=== PATIENT | female | born 2000 | race Caucasian/White ===

== ENCOUNTER 2018-11-21 20:50 | Emergency (ER) | payer MEDICAID ==
[~2018-11-21] VITALS: Ht 165.1 cm; Wt 79.2 kg
--- NOTE | 2018-11-21 21:18 | NUR ---
Discussed pt's c/o N/V with Dr Mcneal;new orders received.
[2018-11-21] MEDS ORDERED: ondansetron 4mg rapidly disintigrating tab PO ONE (21:20)
[2018-11-21 21:31] LABS: BASOPHILS % (AUTO) 0.7 % (0-1); EOSINOPHILS # (AUTO) 0.3 X10'3 (0-0.9); EOSINOPHILS % (AUTO) 4.1 % (0-6); HEMATOCRIT 38.7 % (35.0-45.0); LYMPHOCYTES # (AUTO) 2.5 X10'3 (1.1-4.8); LYMPHOCYTES % (AUTO) 36.1 % (21-51); MEAN CORPUSCULAR HEMOGLOBIN 28.7 PG (27.0-31.0); MEAN CORPUSCULAR HGB CONC 33.6 g/dL (33.0-36.5); MEAN CORPUSCULAR VOLUME 85.3 FL (78-98); MEAN PLATELET VOLUME 7.4 FL (7.4-10.4); MONOCYTES # (AUTO) 0.7 X10'3 (0-0.9); MONOCYTES % (AUTO) 9.9 % (2-12); NEUTROPHILS # (AUTO) 3.4 X10'3 (1.8-7.7); NEUTROPHILS % (AUTO) 49.2 % (42-75); PLATELET COUNT 285 X10'3 (140-440); RED BLOOD COUNT 4.53 X10'6 (4.20-5.60); RED CELL DISTRIBUTION WIDTH 14.1 % (11.5-14.5); WHITE BLOOD COUNT 6.9 X10'3 (4.5-11.0)
[2018-11-21 21:33] LABS: UA COLLECTION TYPE CLN CATCH MIDSTREAM
[2018-11-21 21:34] LABS: CLARITY,URINE SLIGHTLY CLOUDY (Clear); COLOR,URINE YELLOW (Yellow); GLUCOSE, URINE NEGATIVE (Neg); KETONES,URINE NEGATIVE (Neg); LEUKOCYTE ESTERASE ,URINE TRACE (Neg); NITRITES, URINE NEGATIVE (Neg); OCCULT BLOOD,URINE LARGE (Neg); PH,URINE 6.5 (4.8-8.0); PROTEIN,URINE TRACE mg/dl (Neg)
[2018-11-21 21:39] LABS: URINE HCG NEGATIVE (NEG)
[2018-11-21 21:42] LABS: BACTERIA,URINE 1+ /HPF (Neg); MUCUS STRANDS NONE SEEN /LPF (Neg); SQUAMOUS EPITHELIAL CELL,UR MODERATE /LPF (FEW)
[2018-11-21 21:43] LABS: ALANINE AMINOTRANSFERASE 20 U/L (12-78); ALBUMIN 3.8 G/DL (3.4-5.0); ALKALINE PHOSPHATASE 82 IU/L (20-180); ANION GAP 9 (8-16); BILIRUBIN,TOTAL 0.5 MG/DL (0.1-1.0); BLOOD UREA NITROGEN 13 MG/DL (7-18); BUN/CREATININE RATIO 18.3 (6.6-38.0); CALCIUM 8.5 MG/DL (8.5-10.1); CHLORIDE 105 MMOL/L (99-107); CREATININE 0.71 MG/DL (0.40-0.90); GLUCOSE 109 MG/DL (70-104); LIPASE 102 U/L (73-393); POTASSIUM 3.8 MMOL/L (3.5-5.1); SODIUM 139 MMOL/L (135-145); TOTAL CARBON DIOXIDE 25.4 MMOL/L (24-32); TOTAL PROTEIN 7.7 G/DL (6.4-8.2); eGFR > 90 ML/MIN
[2018-11-21 21:50] LABS: ASPARTATE AMINO TRANSFERASE 12 U/L (10-37)
[2018-11-21] MEDS ORDERED: nitrofuran/nitrofuran macrocrysal 100 MG capsule PO ONE (22:55)
[2018-11-21] MEDS ORDERED: NITR100C6 PO (23:56)
[2018-11-22 00:15] VITALS: BP 111/76
== END 2018-11-22 00:16 | disposition home or self-care (01) ==
LOC: ER 20:51
DX: N39.0 Urinary tract infection, site not specified (principal); R10.11 Right upper quadrant pain; R10.12 Left upper quadrant pain; R11.2 Nausea with vomiting, unspecified; Z79.899 Other long term (current) drug therapy
CPT/HCPCS: 36415; 80053; 81001; 81025; 83690; 85025; 87088; 99283

== ENCOUNTER 2018-11-28 21:22 | Emergency (ER) | payer MEDICAID ==
[~2018-11-28] VITALS: Ht 165.1 cm; Wt 77.3 kg
[~2018-11-28 21:22] MED LIST: NITR100C6 PO
[2018-11-28 22:05] LABS: BASOPHILS # (AUTO) 0.1 X10'3 (0-0.2); BASOPHILS % (AUTO) 0.9 % (0-1); EOSINOPHILS # (AUTO) 0.2 X10'3 (0-0.9); EOSINOPHILS % (AUTO) 2.4 % (0-6); HEMATOCRIT 40.7 % (35.0-45.0); LYMPHOCYTES # (AUTO) 2.9 X10'3 (1.1-4.8); LYMPHOCYTES % (AUTO) 33.8 % (21-51); MEAN CORPUSCULAR HGB CONC 34.4 g/dL (33.0-36.5); MEAN CORPUSCULAR VOLUME 84.5 FL (78-98); MEAN PLATELET VOLUME 7.3 FL (7.4-10.4); MONOCYTES # (AUTO) 0.6 X10'3 (0-0.9); MONOCYTES % (AUTO) 7.1 % (2-12); NEUTROPHILS # (AUTO) 4.7 X10'3 (1.8-7.7); NEUTROPHILS % (AUTO) 55.8 % (42-75); PLATELET COUNT 338 X10'3 (140-440); RED BLOOD COUNT 4.81 X10'6 (4.20-5.60); WHITE BLOOD COUNT 8.4 X10'3 (4.5-11.0)
[2018-11-28 22:12] LABS: ALANINE AMINOTRANSFERASE 21 U/L (12-78); ALBUMIN 3.7 G/DL (3.4-5.0); ALBUMIN/GLOBULIN RATIO 0.9 (1.1-1.5); ALKALINE PHOSPHATASE 79 IU/L (20-180); AMYLASE 51 U/L (25-115); ANION GAP 7 (8-16); ASPARTATE AMINO TRANSFERASE 19 U/L (10-37); BILIRUBIN,TOTAL 0.3 MG/DL (0.1-1.0); BLOOD UREA NITROGEN 13 MG/DL (7-18); BUN/CREATININE RATIO 19.1 (6.6-38.0); CALCIUM 8.6 MG/DL (8.5-10.1); CHLORIDE 104 MMOL/L (99-107); CREATININE 0.68 MG/DL (0.40-0.90); GLUCOSE 109 MG/DL (70-104); LIPASE 101 U/L (73-393); POTASSIUM 3.8 MMOL/L (3.5-5.1); SODIUM 136 MMOL/L (135-145); TOTAL CARBON DIOXIDE 24.7 MMOL/L (24-32); TOTAL PROTEIN 7.9 G/DL (6.4-8.2); eGFR > 90 ML/MIN
[2018-11-29 00:09] VITALS: BP 105/70
== END 2018-11-29 00:11 | disposition home or self-care (01) ==
LOC: ER 21:24
DX: R07.89 Other chest pain (principal); R10.13 Epigastric pain; R05 Cough; F17.200 Nicotine dependence, unspecified, uncomplicated; Z79.899 Other long term (current) drug therapy
CPT/HCPCS: 36415; 71046; 80053; 82150; 83690; 85025; 93005; 99284

== ENCOUNTER 2018-12-31 16:03 | Emergency (ER) | payer MEDICAID ==
[~2018-12-31] VITALS: Ht 165.1 cm; Wt 81.0 kg
[2018-12-31 16:04] VITALS: BP 122/83
[2018-12-31] MEDS ORDERED: LIDOcaine 1% w/epiNEPHrine 1:200,000 30ml vial IM ONE (16:10)
--- NOTE | 2018-12-31 16:20 | NUR ---
TOM contacted, Case # [id number]
== END 2018-12-31 16:47 | disposition home or self-care (01) ==
LOC: ER 16:03
DX: S61.021A Laceration with foreign body of right thumb without damage to nail, initial encounter (principal); W34.010A Accidental discharge of airgun, initial encounter; Y93.89 Activity, other specified; Y92.89 Other specified places as the place of occurrence of the external cause; Y99.9 Unspecified external cause status
CPT/HCPCS: 12041; 73130; 99284

== ENCOUNTER 2019-06-05 14:21 | Emergency (ER) | payer MEDICAID ==
[~2019-06-05] VITALS: Ht 165.1 cm; Wt 83.6 kg
[2019-06-05 14:55] VITALS: BP 111/69
--- NOTE | 2019-06-05 15:21 | NUR ---
RED THROAT SWAB COLLECTED BY DR ARAGON AND SENT BY RN TO LAB, ORDERS TO FOLLOW
== END 2019-06-05 15:35 | disposition home or self-care (01) ==
LOC: ER 14:21
DX: J02.9 Acute pharyngitis, unspecified (principal); F17.200 Nicotine dependence, unspecified, uncomplicated; Z79.899 Other long term (current) drug therapy
CPT/HCPCS: 87081; 87880; 99283

== ENCOUNTER 2019-07-13 19:33 | Emergency (ER) | payer MEDICAID ==
[~2019-07-13] VITALS: Ht 165.1 cm; Wt 80.0 kg
[2019-07-13 19:37] VITALS: BP 109/71
[2019-07-13] MEDS ORDERED: LIDOcaine Viscous 15ml cup MM ONE (20:10)
== END 2019-07-13 20:50 | disposition home or self-care (01) ==
LOC: ER 19:34
DX: R13.10 Dysphagia, unspecified (principal)
CPT/HCPCS: 99282

== ENCOUNTER 2019-08-06 16:17 | Emergency (ER) | payer MEDICAID ==
[~2019-08-06] VITALS: Ht 165.1 cm; Wt 76.0 kg
[2019-08-06] MEDS ORDERED: pseudoephedrine 30mg tablet PO ONE (17:40)
[2019-08-06] MEDS ORDERED: ondansetron/PF 4mg/2ml inj IV ONE (17:40)
[2019-08-06] MEDS ORDERED: benzonatate 100mg capsule PO ONE (17:40)
[2019-08-06] MEDS ORDERED: ibuprofen 200mg tablet PO ONE (17:40)
[2019-08-06] MEDS ORDERED: normal saline 1000ML IV soln IVB ONE (17:40)
--- NOTE | 2019-08-06 18:59 | NUR ---
Patient resting comfortably on gurney, reports meds are working and body aches resolving. She is still congested, but cough is better.
[2019-08-06 19:47] VITALS: BP 101/50
== END 2019-08-06 19:50 | disposition home or self-care (01) ==
LOC: ER 16:18
DX: J06.9 Acute upper respiratory infection, unspecified (principal); M79.18 Myalgia, other site; R11.10 Vomiting, unspecified; K21.9 Gastro-esophageal reflux disease without esophagitis; F17.200 Nicotine dependence, unspecified, uncomplicated
CPT/HCPCS: 87502; 87503; 96361; 96374; 99284; J2405; J7030

== ENCOUNTER 2020-11-14 01:14 | Emergency (ER) | payer MEDICAID ==
[~2020-11-14] VITALS: Ht 165.1 cm; Wt 81.8 kg
[2020-11-14] MEDS ORDERED: naproxen 500mg tablet PO ONE (04:50)
[2020-11-14] MEDS ORDERED: cyclobenzaprine 10mg tablet PO ONE (04:50)
[2020-11-14] MEDS ORDERED: CYCL-1 PO (05:38)
[2020-11-14] MEDS ORDERED: NAPR-56 PO (05:38)
[2020-11-14 06:57] VITALS: BP 93/56
== END 2020-11-14 07:00 | disposition home or self-care (01) ==
LOC: ER 01:14
DX: M54.2 Cervicalgia (principal); R51.9 Headache, unspecified; M25.551 Pain in right hip; K21.9 Gastro-esophageal reflux disease without esophagitis; D64.9 Anemia, unspecified; V87.7XXA Person injured in collision between other specified motor vehicles (traffic), initial encounter; Y93.89 Activity, other specified; Y92.89 Other specified places as the place of occurrence of the external cause; Y99.8 Other external cause status
CPT/HCPCS: 72040; 72125; 99285

== ENCOUNTER 2020-12-25 09:18 | Emergency (ER) | payer MEDICAID ==
[~2020-12-25] VITALS: Ht 165.1 cm; Wt 70.0 kg
[~2020-12-25 09:18] MED LIST changes: +CYCL-1 PO
[2020-12-25] MEDS ORDERED: ketorolac trometh. 30mg/ml inj. IM ONE (11:35)
[2020-12-25] MEDS ORDERED: acetaminophen 325mg tablet PO ONE (11:35)
[2020-12-25 11:38] VITALS: BP 96/64
== END 2020-12-25 12:30 | disposition home or self-care (01) ==
LOC: ER 09:18
DX: M54.2 Cervicalgia (principal); K21.9 Gastro-esophageal reflux disease without esophagitis; Z86.2 Personal history of diseases of the blood and blood-forming organs and certain disorders involving the immune mechanism; Z72.89 Other problems related to lifestyle; Z79.899 Other long term (current) drug therapy; V87.7XXD Person injured in collision between other specified motor vehicles (traffic), subsequent encounter
CPT/HCPCS: 96372; 99283; J1885

== ENCOUNTER 2021-02-25 22:58 | Emergency (ER) | payer MEDICAID ==
[~2021-02-25] VITALS: Ht 165.1 cm; Wt 72.7 kg
[2021-02-25] MEDS ORDERED: FLUT16SP2 BOTHNARES (23:12)
[2021-02-25] MEDS ORDERED: PRED10TA23 PO (23:12)
[2021-02-25] MEDS ORDERED: AMOX-422 PO (23:12)
[2021-02-25 23:15] VITALS: BP 109/67
== END 2021-02-25 23:17 | disposition home or self-care (01) ==
LOC: ER 22:59
DX: J32.8 Other chronic sinusitis (principal); B96.89 Other specified bacterial agents as the cause of diseases classified elsewhere; R09.81 Nasal congestion; R51.9 Headache, unspecified; K21.9 Gastro-esophageal reflux disease without esophagitis; Z86.2 Personal history of diseases of the blood and blood-forming organs and certain disorders involving the immune mechanism; Z72.89 Other problems related to lifestyle; Z79.2 Long term (current) use of antibiotics; Z79.899 Other long term (current) drug therapy
CPT/HCPCS: 99283

== ENCOUNTER 2022-07-24 21:25 | Emergency (ER) | payer MEDICAID ==
[~2022-07-24] VITALS: Ht 165.1 cm; Wt 56.0 kg
[~2022-07-24 21:25] MED LIST changes: +FLUT16SP2 BOTHNARES
[2022-07-24 21:35] VITALS: BP 104/69
[2022-07-24 22:03] LABS: BASOPHILS % (AUTO) 0.3 % (0-1); EOSINOPHILS # (AUTO) 0.2 X10'3 (0-0.9); EOSINOPHILS % (AUTO) 0.9 % (0-6); HEMATOCRIT 40.4 % (35.0-45.0); HEMOGLOBIN 13.3 g/dl (12.0-16.0); LYMPHOCYTES # (AUTO) 1.5 X10'3 (1.1-4.8); LYMPHOCYTES % (AUTO) 8.9 % (21-51); MEAN CORPUSCULAR HEMOGLOBIN 28.8 PG (27.0-31.0); MEAN CORPUSCULAR HGB CONC 32.9 g/dL (33.0-36.5); MEAN CORPUSCULAR VOLUME 87.5 FL (78-98); MEAN PLATELET VOLUME 7.3 FL (7.4-10.4); MONOCYTES % (AUTO) 5.8 % (2-12); NEUTROPHILS # (AUTO) 14.6 X10'3 (1.8-7.7); NEUTROPHILS % (AUTO) 84.1 % (42-75); PLATELET COUNT 299 X10'3 (140-440); RED BLOOD COUNT 4.62 X10'6 (4.20-5.60); WHITE BLOOD COUNT 17.3 X10'3 (4.5-11.0)
[2022-07-24 22:14] LABS: ALANINE AMINOTRANSFERASE 13 U/L (12-78); ALKALINE PHOSPHATASE 53 IU/L (46-116); ANION GAP 9 (8-16); ASPARTATE AMINO TRANSFERASE 13 U/L (10-37); BILIRUBIN,TOTAL 1.5 MG/DL (0.1-1.0); BLOOD UREA NITROGEN 8 MG/DL (7-18); BUN/CREATININE RATIO 9.4 (6.6-38.0); CALCIUM 9.1 MG/DL (8.5-10.1); CHLORIDE 101 MMOL/L (99-107); CREATININE 0.85 MG/DL (0.40-0.90); GLUCOSE 99 MG/DL (70-104); LIPASE < 50 U/L (73-393); POTASSIUM 3.5 MMOL/L (3.5-5.1); SODIUM 136 MMOL/L (135-145); TOTAL CARBON DIOXIDE 25.7 MMOL/L (24-32); eGFR 82 ML/MIN
[2022-07-24] MEDS ORDERED: ibuprofen tablet 400 MG TABLET PO ONE (23:40)
[2022-07-24] MEDS ORDERED: acetaminophen 325mg tablet PO ONE (23:40)
[2022-07-24] MEDS ORDERED: ondansetron 4mg rapidly disintigrating tab PO ONE (23:40)
[2022-07-25 00:58] LABS: URINE HCG NEGATIVE (NEG)
[2022-07-25] MEDS ORDERED: AMOX500C2 PO (01:01)
[2022-07-25 01:04] LABS: CLARITY,URINE CLEAR (Clear); GLUCOSE, URINE NEGATIVE (Neg); KETONES,URINE >=80 mg/dl (Neg); LEUKOCYTE ESTERASE ,URINE NEGATIVE (Neg); NITRITES, URINE NEGATIVE (Neg); OCCULT BLOOD,URINE MODERATE (Neg); PH,URINE 5.5 (4.8-8.0); PROTEIN,URINE TRACE mg/dl (Neg); UROBILINOGEN,URINE 0.2 E.U/dL (0.2-1.0)
[2022-07-25 01:13] LABS: COLOR,URINE DARK YELLOW (Yellow); UA COLLECTION TYPE CLN CATCH MIDSTREAM
[2022-07-25 01:16] LABS: RBC,URINE 0-2 /HPF (0-2)
[2022-07-25 01:17] LABS: BACTERIA,URINE 1+ /HPF (Neg); MUCUS STRANDS MANY /LPF (Neg); SQUAMOUS EPITHELIAL CELL,UR FEW /LPF (FEW)
== END 2022-07-25 01:42 | disposition home or self-care (01) ==
LOC: ER 21:26
DX: J02.0 Streptococcal pharyngitis (principal); Z20.822 Contact with and (suspected) exposure to COVID-19; K21.9 Gastro-esophageal reflux disease without esophagitis; R19.7 Diarrhea, unspecified; R05.9 Cough, unspecified
CPT/HCPCS: 71045; 80053; 81001; 81025; 83690; 85025; 87088; 87502; 87503; 87635; 87880; 99284; C9803

== ENCOUNTER 2024-02-20 22:02 | Emergency (ER) | payer MEDICAID ==
[~2024-02-20] VITALS: Ht 167.6 cm; Wt 90.0 kg
[2024-02-20 22:56] LABS: BASOPHILS # (AUTO) 0.1 X10'3 (0-0.2); BASOPHILS % (AUTO) 1.2 % (0-1); EOSINOPHILS # (AUTO) 0.3 X10'3 (0-0.9); EOSINOPHILS % (AUTO) 4.3 % (0-6); HEMATOCRIT 38.3 % (35.0-45.0); HEMOGLOBIN 12.9 g/dl (12.0-16.0); LYMPHOCYTES # (AUTO) 2.2 X10'3 (1.1-4.8); LYMPHOCYTES % (AUTO) 37.5 % (21-51); MEAN CORPUSCULAR HEMOGLOBIN 29.9 PG (27.0-31.0); MEAN CORPUSCULAR HGB CONC 33.7 g/dL (33.0-36.5); MEAN CORPUSCULAR VOLUME 88.8 FL (78-98); MEAN PLATELET VOLUME 6.8 FL (7.4-10.4); MONOCYTES # (AUTO) 0.5 X10'3 (0-0.9); MONOCYTES % (AUTO) 8.9 % (2-12); NEUTROPHILS # (AUTO) 2.9 X10'3 (1.8-7.7); NEUTROPHILS % (AUTO) 48.1 % (42-75); PLATELET COUNT 315 X10'3 (140-440); RED BLOOD COUNT 4.31 X10'6 (4.20-5.60); RED CELL DISTRIBUTION WIDTH 13.3 % (11.5-14.5); WHITE BLOOD COUNT 5.9 X10'3 (4.5-11.0)
[2024-02-20 23:08] LABS: ALANINE AMINOTRANSFERASE 22 U/L (12-78); ALBUMIN 3.4 G/DL (3.4-5.0); ALBUMIN/GLOBULIN RATIO 0.9 (1.1-1.5); ALKALINE PHOSPHATASE 48 IU/L (46-116); ANION GAP 9 (8-16); ASPARTATE AMINO TRANSFERASE 16 U/L (10-37); BILIRUBIN,TOTAL 0.4 MG/DL (0.1-1.0); BLOOD UREA NITROGEN 11 MG/DL (7-18); BUN/CREATININE RATIO 14.5 (10.0-20.0); CALCIUM 8.6 MG/DL (8.5-10.1); CHLORIDE 104 MMOL/L (99-107); CREATININE 0.76 MG/DL (0.40-0.90); GLUCOSE 82 MG/DL (70-104); LIPASE 31 U/L (16-77); POTASSIUM 3.8 MMOL/L (3.5-5.1); SODIUM 138 MMOL/L (135-145); TOTAL PROTEIN 7.2 G/DL (6.4-8.2); eCRCL 106 ML/MIN; eGFR > 90 ML/MIN
[2024-02-20 23:32] LABS: BILIRUBIN,URINE NEGATIVE (Neg); CLARITY,URINE CLEAR (Clear); COLOR,URINE YELLOW (Yellow); GLUCOSE, URINE NEGATIVE (Neg); KETONES,URINE NEGATIVE (Neg); LEUKOCYTE ESTERASE ,URINE NEGATIVE (Neg); NITRITES, URINE NEGATIVE (Neg); OCCULT BLOOD,URINE NEGATIVE (Neg); PROTEIN,URINE NEGATIVE (Neg); UROBILINOGEN,URINE 0.2 E.U/dL (0.2-1.0)
[2024-02-20 23:33] LABS: UA COLLECTION TYPE CLN CATCH MIDSTREAM; URINE HCG NEGATIVE (NEG)
[2024-02-21 02:55] VITALS: BP 148/88; PULSE 82; RESP 16; TEMP 98; O2SAT 96
== END 2024-02-21 02:57 | disposition home or self-care (01) ==
LOC: ER 22:02
DX: J06.9 Acute upper respiratory infection, unspecified (principal); R39.15 Urgency of urination; K21.9 Gastro-esophageal reflux disease without esophagitis; R09.81 Nasal congestion; Z79.899 Other long term (current) drug therapy
CPT/HCPCS: 36415; 80053; 81003; 81025; 83690; 85025; 99283

== ENCOUNTER 2025-05-13 17:40 | Emergency (ER) | payer MEDICAID ==
[~2025-05-13] VITALS: Ht 165.1 cm; Wt 90.8 kg
[2025-05-13 17:45] VITALS: TEMP 97
--- NOTE | 2025-05-13 18:14 | Physician Documentation ---
History of Present Illness ~ Chief Complaint: Urinary Symptoms Stated Complaint: ABD PAIN Time Seen by MD: 18:10 Primary Medical Doctor: [facility] HPI Patient presents to the emergency room with one-week history of urinary tract infection symptoms such as frequency. She is taking cranberry juice an azo without relief. No fevers. Medication Reconciliation Allergies: Coded Allergies: No Known Allergies (Unverified , 05/13/25) Scheduled Cephalexin*Monohydrate* (Keflex*), 1 CAP PO Q12H Cyclobenzaprine* (Cyclobenzaprine*), 1 TAB PO HS Fluticasone Propionate (Flonase), 2 SPRAYS BOTHNARES DAILY Nitrofurantoin Monohyd/M-Cryst (Macrobid 100 mg Capsule), 1 CAP PO Q12H Past Medical History Past Medical History: GERD, Anemia Past Surgical History: no surgical history Alcohol Use: Occasionally Drug Use: none Lives with: Family Lives In: Home Review of Systems ROS All review of systems negative except as per HPI Physical Exam Vital Signs: Temperature: 97.0, Source: Temporal, Heart Rate: 84, Respiratory Rate: 19, BP: 112/75, Pulse Oximetry: 98, Weight: 90.800 Oxygen Flow Rate: 0 Physical Exam General: Patient is awake, alert, oriented x4 in no acute distress and well appearing.~ Head: Normocephalic and atraumatic. Eyes: Conjunctival normal. EOMI. PERRL. ENT: Mucous membranes moist. Neck: Supple, trachea is midline. Chest: Clear to auscultation bilaterally without rales, rhonchi, or wheezes. There is no accessory muscle use or retractions. Cardiac: RRR without murmurs, gallops, or rubs. Progress Results/Orders Results/Orders Orders - HANG MCNEAL MD Cult Urine + [place] [address] (05/13/25 18:44) Completed Orders - HANG MCNEAL MD Hcg, Ur Ql (05/13/25 18:11) Ua W/Microscopic, Cult If Ind (05/13/25 18:00) Cephalexin Capsule (Keflex Capsule) (05/13/25 18:45) Medications Received in ER Medications (Trade) Dose Ordered Sig/Rosaline Route PRN Reason Start Time Stop Time Status Last Admin Dose Admin (Keflex capsule) 500 mg ONCE ONCE PO 05/13/25 18:45 05/13/25 18:46 DC 05/13/25 19:06 500 MG Vital Signs 05/13/25 05/13/25 17:45 19:06 Temp 97.0 Pulse 84 77 Resp 19 16 B/P (MAP) 112/75 114/70 Pulse Ox 98 99 O2 Flow Rate 0 Laboratory Tests Test 05/13/25 18:00 Urine Specimen Description Non-specified Urine Color Straw Urine Clarity Cloudy Urine pH 6.5 Urine Specific [place] <=1.005 Urine Protein Negative Urine Glucose (UA) Negative Urine Ketones Negative Urine Occult Blood Negative Urine Nitrite Negative Urine Bilirubin Negative Urine Urobilinogen 0.2 Urine Leukocyte Esterase Small H Urine RBC 3-10 Urine WBC 5-10 H Urine Squamous Epithelial Cells Moderate Urine Bacteria Few Urine Mucus None seen Urine Culture Indicated Indicated Volume Urine Centrifuged 10 ml Urine HCG, Qualitative Negative Urine Comment Low volume Microbiology Date/Time Source Procedure Growth Status 05/13/25 18:44 Urine Nonspecified Urine Culture - Preliminary Culture received. Resulted Medical Decision Making Additional information obtaine: old records Findings Patient presented to the emergency room with urinary frequency. Differentials include but are not limited to interstitial cystitis, urinary tract infection, abrasion. Urinalysis positive for urinary tract infection we will treat her as such. ER precautions discussed. He had not feel patient requires additional emergent labs or imaging. Urinary Diff Dx:Considerations: Include: AAA, , Aortic dissection, Appendicitis, Bowel obstruction, Cholelithiasis, Choleangitis, DJD, Ectopic , Hepatitis, HNP, Impaction, Intrauterine , Musculoskeletal pain, Ovarian torsion, Pancreatitis, PID, Post-Op complication, Pyelonephritis, Renal failure, Strain, Urinary Obstruction, Urolithiasis, Urinary retention, UTI, Vaginitis, Other Genital Diff Dx:Considerations: Include: -Complete, - Incomplete, -Inevitable, Ablortion-Missed, -Threatened, Abruptio placentae, Bartholin abscess, Bartholin cyst, Blood loss anemia, Constipation, Cervicitis, Dsymenorrhea, Ectopic , Foreign body, Hormonal, Hidraden itis suppurativa, Intrauterine , Menorrhagia, Menometrorrhagia, Menstrual bleeding, Myomatous uterus, Perianal abscess, Physiologic discharge, Pinworms, PID, Placenta previa, , Precipitous Hct, Trauma, UTI, Vaginitis(osis)-Atrophic, Vaginitis, Vaginitis(osis)-Bacterial, Vaginitis(osis)- Candidal, Vaginitis(osis)-Contact, Vaginitis(osis)-Herpes, Vaginitis(osis)-Tric h., Other Departure Disposition: HOME / SELF CARE / HOMELESS Impression: Primary Impression: Acute urinary tract infection Condition: Stable Discharge Instructions: Urinary Tract Infection, Adult Referrals: NO PRIMARY CARE PROVIDER (PCP) Prescriptions Cephalexin*Monohydrate* (Keflex*) 500 Mg Capsule 1 CAP PO Q12H for 10 Days, #20 CAP Prov: HANG MCNEAL MD 05/13/25 Signature Scribe Signature: No scribe Attestation: The note accurately reflects work and decisions made by me.Hang Mcneal MD 05/13/25 19:54 HANG MCNEAL MD May 13, 2025 18:14
[2025-05-13 18:31] LABS: LEUKOCYTE ESTERASE ,URINE SMALL (Neg); NITRITES, URINE NEGATIVE (Neg); OCCULT BLOOD,URINE NEGATIVE (Neg)
[2025-05-13 18:33] LABS: URINE HCG NEGATIVE (NEG)
[2025-05-13 18:42] LABS: UA COLLECTION TYPE NON-SPECIFIED
[2025-05-13 18:43] LABS: SQUAMOUS EPITHELIAL CELL,UR MODERATE /LPF (FEW)
[2025-05-13 18:44] LABS: MUCUS STRANDS NONE SEEN /LPF (Neg)
[2025-05-13] MEDS ORDERED: CEPH-585 PO (18:46)
[2025-05-13 19:06] VITALS: BP 114/70; PULSE 77; RESP 16; O2SAT 99
== END 2025-05-13 19:09 | disposition home or self-care (01) ==
LOC: ER 17:40
DX: N39.0 Urinary tract infection, site not specified (principal); K21.9 Gastro-esophageal reflux disease without esophagitis; D64.9 Anemia, unspecified; Z72.89 Other problems related to lifestyle; Z87.440 Personal history of urinary (tract) infections; Z79.899 Other long term (current) drug therapy
CPT/HCPCS: 81001; 81025; 87088; 99283